=== PATIENT | male | born 1960 | race African-American/Black ===

== ENCOUNTER → 2017-12-02 | Outpatient (CLI) | payer OTHER, MEDICAID ==
[~2017-12-02] MED LIST: ALBUTEROL2.5 MG/31 INH; ASPIR 8181 MG PO; ASPIRIN325 PO; CARVEDILOL12.5 MG PO; CARVEDILOL6.25 MG PO; COREG3.125 MG PO; ENTRESTO 49 MG1 EACH PO; ENTRESTO 97 MG1 EACH PO; FOLTANX TABLET1 EACH PO; GABAPENTIN 100100 MG PO; HYDROCODONE-AP1 EAC6 PO; LEXAPRO20 MG PO; LIPITOR 20 MG T20 M1 PO; LISINOPRIL5 MG PO; METAMUCIL1 EAC1 PO; OMEPRAZOLE20 M2 PO; OXYCODONE HCL5 MG PO; PERCOCET PO; PLAVIX 75 MG TA75 M1 PO; PRINIVIL5 MG PO; PROAIR HFA8.5 GM INH; SINGULAIR 10 MG10 M1 PO; SPIRIVA; SYMBICORT160 MCG/4. INH; XANAX 0.25 MG0.25 MG PO
== END | disposition home or self-care (01) ==
LOC: M.RAD 11-28 15:19
DX: M25.512 Pain in left shoulder (principal); I10 Essential (primary) hypertension; E78.4 Other hyperlipidemia; Z86.73 Personal history of transient ischemic attack (TIA), and cerebral infarction without residual deficits; Z90.49 Acquired absence of other specified parts of digestive tract; Z79.82 Long term (current) use of aspirin; Z79.899 Other long term (current) drug therapy

== ENCOUNTER 2017-12-26 08:51 | Observation (INO) | payer OTHER, MEDICAID ==
[~2017-12-26] VITALS: Ht 190.5 cm; Wt 94.3 kg
[~2017-12-26 08:51] MED LIST changes: -ALBUTEROL2.5 MG/31 INH; -ENTRESTO 49 MG1 EACH PO; -HYDROCODONE-AP1 EAC6 PO; -METAMUCIL1 EAC1 PO; -OXYCODONE HCL5 MG PO
[2017-12-26] MEDS ORDERED: SYMBICORT160 MCG/4. INH (09:20)
[2017-12-26] MEDS ORDERED: ENTRESTO 49 MG1 EACH PO (09:21)
[2017-12-26] MEDS ORDERED: ALBUTEROL2.5 MG/31 INH (09:24)
[2017-12-26 09:55] LABS: HEMOGLOBIN 12.6 gm/dL (14.0-18.0); MCH 27.6 pg (26.0-34.0); MCHC 33.3 g/dL (28.0-37.0); MCV 83.1 fL (80.0-100.0); MPV 8.2 fl. (7.2-11.1); RBC 4.58 mil/uL (4.50-6.00); RDW-CV 15.2 % (10.5-14.5); WBC 4.9 thou/uL (4.0-11.0)
[2017-12-26 10:01] LABS: CALCIUM 8.8 mg/dL (8.5-10.1); CREATININE 1.1 mg/dL (0.6-1.3); POTASSIUM 3.7 mmol/L (3.5-5.1)
[2017-12-26 14:14] VITALS: BP 147/88
--- NOTE | 2017-12-26 20:01 | NUR ---
ALERT AND ORIENTED X4. PAIN BEING MANAGED WITH PO PAIN MEDICATION. IV IS PATENT AND SALINE LOCKED. PATIENT HAS BEEN VERY ANXIOUS WHEN AWAKE. PO ANXIETY MEDICATION GIVEN. SLING IN PLACE. DRESSING C/D/I. CONTINUOUS PULSE OX IN PLACE. VSS ON ROOM AIR. HOURLY ROUNDS HAVE BEEN MAINTAINED THROUGHOUT SHIFT. CALL LIGHT IS WITHIN REACH. NURSING WILL CONTINUE TO MONITOR.
[2017-12-26 20:30] VITALS: BP 154/103
[2017-12-26 22:00] VITALS: BP 140/80
[2017-12-26 23:46] VITALS: BP 129/84
[2017-12-27 03:30] VITALS: BP 144/78
--- NOTE | 2017-12-27 07:45 | NUR ---
Alert and oriented x4 but forgetful. L shoulder bulky dressing had to be reinforced because it was coming loose. He's up with stand by assist to the bathroom,he is voiding adequately. He denies nausea,bowel sounds x 4. He's on roomair and continuous pulse ox and it has not alarmed. He has had pain meds x 5. He has rated his shoulder pain from 10 to 3. He has slept intermittenly.
[2017-12-27 08:00] VITALS: BP 143/100
[2017-12-27] MEDS ORDERED: OXYCODONE HCL5 MG PO (10:40)
[2017-12-27] MEDS ORDERED: HYDROCODONE-AP1 EAC6 PO (10:42)
--- NOTE | 2017-12-27 11:30 | NUR ---
SPOKE WITH PT.AND . HE SAID HE IS READY TO GO HOME SOON DISCHARGES HIM. IS ON UNIT. HE SAID HE WILL GO HOME WITH . SHE CAN ASSIST HIM NEEDED WITH BATHEING/DRESSING. SHE NODDED HER HEAD YES. HE SAID HE DID NOT FEEL HE HAD ANY DISCHARGE NEEDS.
[2017-12-27 11:55] VITALS: BP 143/100
[2017-12-27] MEDS ORDERED: METAMUCIL1 EAC1 PO (12:02)
--- NOTE | 2018-01-23 11:54 | OP ---
[address] [address] OPERATIVE REPORT Name: ROSIO ANGELES Room: [address] Sarah#: [id number] Admission: 12/26/17 Attend Phys: Denise Jewell Discharge: 12/27/17 Date of : 60 Report #: [id number] THIS REPORT FOR: //name// CC: Mick Nazario DICTATED BY: Drew Soto DO DATE OF SERVICE: 12/26/2017 PREOPERATIVE DIAGNOSIS: Left shoulder rotator cuff tear. POSTOPERATIVE DIAGNOSES: 1. Left shoulder full-thickness rotator cuff tear, anterior margin of supraspinatus. 2. Biceps tendinosis. 3. Type 2 SLAP tear. 4. Subacromial bursitis. PROCEDURE PERFORMED: 1. Left shoulder arthroscopy with rotator cuff repair using Arthrex SpeedFix one anchor laterally. 2. Subacromial decompression. 3. Biceps tenotomy. PRIMARY SURGEON: Mick Patterson DO EP TECHNOLOGIST: Drew Soto DO ANESTHESIA: General LMA. ESTIMATED BLOOD LOSS: Minimal. COMPLICATIONS: None. SPECIMENS: None. CONDITION: Stable. DISPOSITION: PACU to floor 4 hours. INDICATIONS: The patient is a 57-year-old male that has been seen in our clinic multiple times regarding his shoulder pain. He did have a dislocation earlier last year and has continued to have shoulder pain after this. He has failed conservative treatments including injections and therapy and activity [facility] [address] [place] [address] OPERATIVE REPORT Name: BRIDGETTEROSIO Kingsley Room: [address] Sarah#: [id number] Admission: 12/26/17 Attend Phys: Denise Jewell Discharge: 12/27/17 Date of : 60 Report #: [id number] modification. He presents today for the above mentioned procedure. Risks, benefits, complications and alternatives of surgery were reviewed and discussed with him and he is wishing to proceed. DESCRIPTION OF PROCEDURE: The patient was taken to the OR suite, placed supine on the OR table. He was given the benefit of general anesthetic. He was then placed in the beach chair position. Head was secured in the anatomic alignment. The patient was prepped and draped in the usual sterile fashion. Prior to procedure, a time-out was taken confirming correct site, patient and procedure. The procedure began with a small incision to posterolateral viewing portal. Blunt trocar was used to access the shoulder joint. Camera was inserted and diagnostic arthroscopy was performed noting above mentioned findings. A spinal needle was then used to localize our anterolateral portal. This was just lateral to the coracoid process. Skin incision was made and blunt trocar was inserted. We then inserted the arthroscopic scissors and biceps tenotomy was performed. Next, spinal needle was inserted laterally through the cuff tear as visualized from the undersurface of the supraspinatus within the joint. A 2-0 Prolene was then placed to patria our tear. All fluid was removed within the joint space and we proceeded to subacromial space. Blunt trocar was used to gain access posterior from our posterolateral viewing portal. Camera was again inserted. A 18-gauge spinal needle was used to localize our lateral portal. Skin incision was made for a lateral portal and blunt trocar was inserted. Using arthroscopic shaver and radiofrequency ablator, a subacromial decompression was performed. A tear that was localized within the subacromial space with Prolene was identified. This was a full thickness tear at the anterior third of the supraspinatus tendon. The tendon edges were debrided back. The insertion footprint was debrided of all soft tissue debris down to get bleeding bone. Next, using a Scorpion suture passer, a horizontal mattress FiberTape was placed within the tendon tear at the anterior and posterior margins. We then placed a single anchor laterally to reduce the tendon back to its insertion and secured good bony purchase with a lateral row anchor. All instrumentation was then removed. Final images obtained. All excess fluid was removed from subacromial space. Wounds were closed with interrupted 4-0 nylon. Sterile dressing was applied. The patient was placed in a slingshot immobilizer. He tolerated the procedure well. He was transferred to the PACU in good and stable condition. All sponge and needle counts correct x 2. <ELECTRONICALLY SIGNED> By: Mick Patterson DO 01/23/18 1154 1218 [id number] Patterson DO /nt
== END 2017-12-27 13:00 | disposition home or self-care (01) ==
LOC: M.SUR 08:51 → M.TBA 12:10 → M.ORTHSURG 12:10
PROVIDERS: Anesthesiology; ADMIT Internal Medicine
DX: M75.122 Complete rotator cuff tear or rupture of left shoulder, not specified as traumatic (principal); M75.22 Bicipital tendinitis, left shoulder; S43.432A Superior glenoid labrum lesion of left shoulder, initial encounter; M75.52 Bursitis of left shoulder; J45.909 Unspecified asthma, uncomplicated; G62.9 Polyneuropathy, unspecified; M17.0 Bilateral primary osteoarthritis of knee; I10 Essential (primary) hypertension; M75.02 Adhesive capsulitis of left shoulder; Z87.891 Personal history of nicotine dependence; Z86.73 Personal history of transient ischemic attack (TIA), and cerebral infarction without residual deficits

== ENCOUNTER → 2018-09-09 | Outpatient (CLI) | payer OTHER, MEDICAID ==
[~2018-09-09] MED LIST changes: +ALBUTEROL2.5 MG/31 INH; +ENTRESTO 49 MG1 EACH PO; +HYDROCODONE-AP1 EAC6 PO; +METAMUCIL1 EAC1 PO; +OXYCODONE HCL5 MG PO
--- NOTE | 2018-09-09 13:40 | 2DMMODE ---
[place] [address] 2 D/M-MODE ECHOCARDIOGRAM Name: ROSIO ANGELES Room: [facility]#: [id number] Admission: 09/09/18 Attend Phys: Brenden Quiroz, Discharge: Date of : 60 Date of Service: 09/09/18 1339 Report #: [id number] THIS REPORT FOR: //name// APPROVED REPORT Study performed: 09/09/2018 09:47:50 EXAM: Comprehensive 2D, Doppler, and color-flow Echocardiogram Patient Location: Out-Patient Status: routine BSA: 2.21 HR: 64 bpm BP: 149/85 mmHg Other Information Study Quality: Good Indications Congestive Heart Failure 2D Dimensions IVSd: 15.70 (7-11mm) LVOT Diam: 21.90 (18-24mm) LVDd: 71.71 mm PWd: 12.37 (7-11mm) Ascending Ao: 38.38 (22-36mm) LVDs: 64.06 (25-40mm) Aortic Root: 33.90 mm Volumes Left Atrial Volume (Systole) LA ESV Index: 19.70 mL/m2 Aortic Valve AoV Peak Brennan.: 1.36 m/s AO Peak Gr.: 7.36 mmHg LVOT Max P.07 mmHg AO Mean Gr.: 4.69 mmHg LVOT Mean P.49 mmHg LVOT Max V: 0.52 m/s AO V2 VTI: 26.36 cm LVOT Mean V: 0.32 m/s IRENE (VTI): 1.49 cm2 LVOT V1 VTI: 10.41 cm Mitral Valve E/A Ratio: 0.72 MV Decel. Time: 227.91 ms MV E Max Brennan.: 0.54 m/s MV PHT: 66.09 [place] [address] 2 D/M-MODE ECHOCARDIOGRAM Name: ROSIO ANGELES Room: [facility]#: [id number] Admission: 09/09/18 Attend Phys: Brenden Quiroz, Discharge: Date of : 60 Date of Service: 09/09/18 1339 Report #: [id number] MVA (PHT): 3.33 cm2 TDI E/Lateral E': 10.80 E/Medial E': 7.71 Medial E' Brennan.: 0.07 m/s Lateral E' Brennan.: 0.05 m/s Pulmonary Valve PV Peak Brennan.: 0.93 m/s PV Peak Gr.: 3.48 mmHg Tricuspid Valve RAP Estimate: 5.00 mmHg TR Peak Gr.: 21.91 mmHg RVSP: 26.91 mmHg PA Pressure: 26.91 mmHg Left Ventricle Left ventricle is moderately dilated. There is global left ventricular hypokinesis with some dyssynergy noted. Mild concentric left ventricular hypertrophy. Left ventricular systolic function is moderate to severely decreased. LVEF is 30-35%. Grade I - abnormal relaxation pattern. Right Ventricle The right ventricle is normal size. The right ventricular systolic function is normal. Device lead is present in the right ventricle. Atria The left atrium size is normal. Pacemaker lead is present in the right atrium. Aortic Valve The aortic valve is normal in structure. Trace aortic regurgitation. There is no aortic valvular stenosis. Mitral Valve The mitral valve is normal in structure. Mild mitral regurgitation. No evidence of mitral valve stenosis. Tricuspid Valve The tricuspid valve is normal in structure. Trace tricuspid regurgitation. Pulmonic Valve The pulmonary valve is normal in structure. There is no pulmonic [place] [address] 2 D/M-MODE ECHOCARDIOGRAM Name: ROSIO ANGELES Room: [facility]#: [id number] Admission: 09/09/18 Attend Phys: Brenden Quiroz, Discharge: Date of : 60 Date of Service: 09/09/18 1339 Report #: [id number] Great Vessels The aortic root is normal in size. The ascending aorta is mildly dilated. IVC is dilated and collapses >50% with inspiration. Pericardium There is no pericardial effusion. <Conclusion> Left ventricle is moderately dilated. Mild concentric left ventricular hypertrophy. Left ventricular systolic function is moderate to severely decreased. LVEF is 30-35%. Grade I - abnormal relaxation pattern. Device lead is present in the right ventricle. Trace aortic regurgitation. Mild mitral regurgitation. IVC is dilated and collapses >50% with inspiration. The ascending aorta is mildly dilated. <ELECTRONICALLY SIGNED> By: Brenden Quiroz MD, FACC 09/09/18 1339 133 Brenden Quiroz MD, FACC /INF
== END ==
LOC: M.CRD 09:18
DX: I34.0 Nonrheumatic mitral (valve) insufficiency (principal); I51.7 Cardiomegaly; I50.22 Chronic systolic (congestive) heart failure; I42.8 Other cardiomyopathies

== ENCOUNTER → 2018-12-23 | Day surgery (SDC) | payer OTHER ==
--- NOTE | ~2018-12-23 | PROC ---
[address] [address] PROCEDURE REPORT Name: ROSIO ANGELES Room: [facility]..#: [id number] Admission: 12/23/18 Attend Phys: Mayelin Ayers MD Discharge: Date of : 60 Report #: [id number] THIS REPORT FOR: //name// For GI report, please see the Provation report in Perceptive 7 content. By: [id number] Records Staff [facility] /LUPE
[2018-12-23 06:59] LABS: HEMATOCRIT 42.8 % (42.0-52.0); HEMOGLOBIN 14.2 gm/dL (14.0-18.0); MCH 27.7 pg (26.0-34.0); MCHC 33.3 g/dL (28.0-37.0); MCV 83.2 fL (80.0-100.0); RBC 5.15 mil/uL (4.50-6.00); RDW-CV 15.2 % (10.5-14.5); WBC 5.2 thou/uL (4.0-11.0)
[2018-12-23 07:00] LABS: MPV 7.7 fl. (7.2-11.1)
[2018-12-23 07:07] LABS: CALCIUM 8.9 mg/dL (8.5-10.1); POTASSIUM 3.8 mmol/L (3.5-5.1)
--- NOTE | 2018-12-23 17:10 | EKG ---
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: : 1960 Requested By: Mayelin Ayers Order Number: [id number] Michelle MD: Brenden Quiroz Measurements Intervals [place] Rate: 54 P: 0 ND: 171 QRS: -3 QRSD: 112 T: 4 QT: 453 QTc: 430 Interpretive Statements Sinus rhythm Probable left ventricular hypertrophy Borderline T abnormalities, inferior leads Compared to ECG 07/07/2017 12:10:04 T-wave abnormality now present Electronically Signed On 12-23-2018 17:10:14 CDT by Brenden Quiroz [email or web address] <ELECTRONICALLY SIGNED> By: Brenden Quiroz MD, [facility] 12/23/181709 0755 [id number] Brenden Quiroz MD, FACC /EPI
--- NOTE | 2018-12-24 15:06 | PATH ---
[facility] [address] [place] [address] PATHOLOGY RPT PROCEDURE Name: BRIDGETTEYASHBIJU XIONG [id number] Admission: 12/23/18 Date of : 60 Discharge: Report #: [id number] Path Case #: [id number] [facility] Accession Number: [id number] . 01 Material submitted: . PART A: GASTRIC BIOPSY R/O GASTRITIS PART B: TRANSVERSE COLON POLYPS PART C: ASCENDING COLON POLYP . 01 Clinical history: . History of colon polyps, GERD, long-term use of anti-platelets . 02 Diagnosis: A. Gastric biopsy: - Mild nonspecific chronic gastritis with suggestion of fundic gland polyp(s), negative for Helicobacter pylori organisms and dysplasia. . B. Transverse colon polyps: - Multiple tubular adenomas, negative for high-grade dysplasia. . C. Ascending colon polyp: - Tubular adenoma, negative for high-grade dysplasia. . (WILLIAM:dexter; 12/24/2018) MBR/12/24/2018 . 02 Comment: Special stain on A: H. pylori immuno. (WILLIAM:dexter; 12/24/2018) . 02 Electronically signed: . Petr Hussein MD, Pathologist NPI- [id number] . 01 Gross description: . A. The specimen is received in formalin, labeled "Yash Angeles, gastric biopsy rule out gastritis", are four dwyer, mucosal fragments ranging from 0.1 cm up to 0.5 cm in greatest dimension and measuring 0.5 x 0.5 x 0.2 cm in aggregate. The specimen is entirely submitted in A1. . B. The specimen is received in formalin, labeled "Yash Angeles, transverse colon polyps", is a dwyer, rubbery sessile polyp measuring 0.6 x 0.4 x 0.3 cm, inked black, bisected and entirely submitted in B1. Also received are several dwyer soft tissue fragments admixed with yellow mucoid material measuring 0.7 x 0.5 x 0.2 cm in aggregate, this is entirely submitted in B2. . C. The specimen is received in formalin, labeled "Yash Angeles, [place] [address] PATHOLOGY RPT PROCEDURE Name: YASH ANGELES Room: [facility]#: [id number] Admission: 12/23/18 Date of : 60 Discharge: Report #: [id number] Path Case #: [id number] ascending colon polyp", are few fragments of dwyer, mucosal tissue admixed with plant material and mucus measuring 1.0 x 0.7 x 0.2 cm in aggregate. The specimen is entirely submitted in C1. ([facility]; 12/23/2018) SHS/SHS . 02 Pathologist provided ICD-10: K29.50, K31.7, D12.3, D12.2 . 02 CPT . 293784, 029262, 747671 Specimen Comment: A courtesy copy of this report has been sent to Specimen Comment: [phone], . Specimen Comment: Report sent to / DR LOREDO Performed at: [facility] [address], [place] [id number] MD Toribio Newman MD Phone: [phone] Performed at: [address] [address] Jan[place], [place] [id number] MD Petr Hussein MD Phone: [phone]
== END | disposition home or self-care (01) ==
LOC: M.SUR 06:21
PROVIDERS: Internal Medicine Gastroenterology
DX: Z12.11 Encounter for screening for malignant neoplasm of colon (principal); Z86.010 Personal history of colon polyps; K57.30 Diverticulosis of large intestine without perforation or abscess without bleeding; K64.8 Other hemorrhoids; D12.3 Benign neoplasm of transverse colon; D12.2 Benign neoplasm of ascending colon; K29.50 Unspecified chronic gastritis without bleeding; K44.9 Diaphragmatic hernia without obstruction or gangrene; I25.10 Atherosclerotic heart disease of native coronary artery without angina pectoris; I25.2 Old myocardial infarction; I50.9 Heart failure, unspecified; I73.9 Peripheral vascular disease, unspecified; J44.9 Chronic obstructive pulmonary disease, unspecified; K21.9 Gastro-esophageal reflux disease without esophagitis; Z98.890 Other specified postprocedural states; Z87.891 Personal history of nicotine dependence; Z79.899 Other long term (current) drug therapy; Z79.02 Long term (current) use of antithrombotics/antiplatelets

== ENCOUNTER → 2019-02-10 | Outpatient (CLI) | payer OTHER | LOC: M.NUC 06:25 | DX: R68.81 Early satiety (principal); R63.4 Abnormal weight loss; R63.0 Anorexia ==

== ENCOUNTER 2019-08-26 22:27 | Observation (INO) | payer OTHER ==
[~2019-08-26] VITALS: Ht 190.5 cm; Wt 84.4 kg
[2019-08-26 22:34] VITALS: BP 159/100
[2019-08-26 23:13] LABS: ABSOLUTE LYMPHOCYTES 1.3 thou/uL (0.8-5.3); ABSOLUTE MONOCYTES 1.5 thou/uL (0.0-1.2); ABSOLUTE NEUTROPHILS 6.8 thou/uL (1.6-8.1); BASOPHILS 0.5 %; EOSINOPHILS 0.4 %; HEMATOCRIT 42.1 % (42.0-52.0); HEMOGLOBIN 14.3 gm/dL (14.0-18.0); LYMPHOCYTES 13.7 %; MCH 28.2 pg (26.0-34.0); MCHC 33.9 g/dL (28.0-37.0); MCV 83.3 fL (80.0-100.0); MONOCYTES 15.8 %; MPV 7.9 fl. (7.2-11.1); NUCLEATED RBCS 0 /100WBC; PLATELET COUNT* 209 thou/uL (150-400); POLYS 69.6 %; RBC 5.05 mil/uL (4.50-6.00); RDW-CV 15.2 % (10.5-14.5); WBC 9.8 thou/uL (4.0-11.0)
[2019-08-26 23:14] LABS: CALCIUM 9.1 mg/dL (8.5-10.1); CREATININE 1.1 mg/dL (0.6-1.3); POTASSIUM 3.3 mmol/L (3.5-5.1)
[2019-08-26 23:18] LABS: ALBUMIN 3.7 g/dL (3.4-5.0); MAGNESIUM 1.6 mg/dL (1.8-2.4); TOTAL BILIRUBIN 0.3 mg/dL (<0.1-1.0); TOTAL PROTEIN 7.4 g/dL (6.4-8.2)
[2019-08-26 23:25] LABS: URINE BILIRUBIN NEGATIVE (Negative); URINE BLOOD NEGATIVE (Negative); URINE CLARITY CLEAR; URINE COLOR YELLOW; URINE GLUCOSE-RANDOM NEGATIVE (Negative); URINE KETONES NEGATIVE (Negative); URINE LEUKOCYTES-REFLEX NEGATIVE (Negative); URINE NITRITE-REFLEX NEGATIVE (Negative); URINE PROTEIN NEGATIVE (Negative); URINE SPECIFIC GRAVITY <= 1.005 (1.005-1.030); URINE UROBILINOGEN 0.2 E.U./dl (0.2-1.0)
[2019-08-26 23:29] LABS: BE 2.3 mmol/L (-2 to +3); PCO2 39.8 mmHg (35.0-45.0); PO2 84.4 mmHg (75.0-100.0); pH 7.441 (7.340-7.450)
[2019-08-26 23:36] LABS: INFLUENZA A ANTIGEN Negative (Negative)
[2019-08-27 01:40] VITALS: BP 135/85
[2019-08-27 01:45] VITALS: BP 154/84
--- NOTE | 2019-08-27 02:00 | NUR ---
PT ADMITTED TO ROOM 209 VIA CART FROM ED WITH INFLUENZA B, HTN URGENCY,HEADACHE AND BRIGHT RED BLOOD PER RECTUM. PT REPORTS HX OF INTESTINAL CONSTRICTION THAT REQUIRED IMMEDIATE SURGICAL INTERVENTION AT . PT IS ALERT AND ANSWERS QUESTIONS APPROPRIATELY. UP AD MOE WITHOUT ASSISTIVE DEVICES. TELE SHOWS SR. PT DOES HAVE A PACEMAKER TO L SC.MEDICATIONS RECONCILED AND GIVEN PER EMAR. PT EDUCATED TO TREATMENTS,PLAN OF CARE AND ORIENTED TO ROOM.
--- NOTE | 2019-08-27 05:25 | NUR ---
PT IS RESTING COMFORTABLY AT THIS TIME WITH AT BEDSIDE. PT HAD HEADACHE AT ADMISSION AND GIVEN ONE TIME DOSE OF IBUPROFEN. PT PROGRESSING TOWARDS GOALS.
[2019-08-27 08:00] VITALS: BP 146/94
--- NOTE | 2019-08-27 10:32 | EKG ---
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: [facility] : 1960 Requested By: Latricia Arias Order Number: [id number] MD: Cooper Francis Measurements Intervals [place] Rate: 76 P: 34 [place]: 174 QRS: -9 QRSD: 114 T: 12 QT: 419 QTc: 472 Interpretive Statements Sinus rhythm Probable left atrial enlargement Left ventricular hypertrophy Baseline wander in lead(s) V1 Compared to ECG 12/23/2018 07:55:41 T-wave abnormality persists Electronically Signed On 08-27-2019 10:32:06 GRILL PREP COOK by Cooper Francis [email or web address] <ELECTRONICALLY SIGNED> By: Cooper Francis MD, FACC 08/27/19 1032 2241 [id number] Cooper Francis MD, [facility] /EPI
[2019-08-27] MEDS ORDERED: TAMIFLU75 MG PO (10:56)
[2019-08-27 11:27] VITALS: BP 150/106
[2019-08-27 11:52] VITALS: BP 150/106
--- NOTE | 2019-08-27 13:19 | NUR ---
PT VSS, IN ISOLATION FOR INFLUENZA B, UAL, NSR ON TELE, A&OX4 REC DISCHARGE ORDERS FOR PATIENT, REVIEW DC ORDERS WITH PATIENT, REMOVED TELE MONITOR AND IV WITHOUT COMPLICATION. SCRIPT SENT ELECTRONICALLY TO PHARMACY, CARE NOTE GIVEN TO PATIENT. PATIENT WALKED TO FRONT DOOR WITH NURSING STAFF AND PICKED UP BY SPOUSE.
== END 2019-08-27 13:00 | disposition home or self-care (01) ==
LOC: M.ERS 22:27 → M.2W 08-27 00:19 → M.TBA-ER 08-27 00:19 → M.2W 08-27 01:30
PROVIDERS: Personal Emergency Response Attendant; ADMIT Internal Medicine
DX: J11.1 Influenza due to unidentified influenza virus with other respiratory manifestations (principal); I16.0 Hypertensive urgency; K92.1 Melena; R51 Headache; G62.9 Polyneuropathy, unspecified; I11.0 Hypertensive heart disease with heart failure; I50.22 Chronic systolic (congestive) heart failure; Z86.73 Personal history of transient ischemic attack (TIA), and cerebral infarction without residual deficits; Z79.82 Long term (current) use of aspirin; Z87.891 Personal history of nicotine dependence; Z79.899 Other long term (current) drug therapy

== ENCOUNTER → 2020-09-15 | Outpatient (CLI) | payer OTHER ==
[~2020-09-15] VITALS: Ht 188 cm; Wt 93.0 kg
[~2020-09-15] MED LIST changes: +PAXIL20 MG PO; +POTASSIUM20 PO; +PROAIR HFA8.5 GM PO; +PROTONIX 20 MG20 M1 PO; +TAMIFLU75 MG PO; +VIAGRA100 MG PO
[2020-09-15 10:32] VITALS: BP 144/96
[2020-09-15 10:38] LABS: HEMATOCRIT 40.3 % (42.0-52.0); HEMOGLOBIN 13.3 gm/dL (14.0-18.0); MCH 27.4 pg (26.0-34.0); MPV 7.6 fl. (7.2-11.1); RBC 4.86 mil/uL (4.50-6.00); RDW-CV 15.4 % (10.5-14.5); WBC 6.2 thou/uL (4.0-11.0)
[2020-09-15 10:50] LABS: APTT 24.1 Seconds (25.0-31.3); PROTIME 10.5 Seconds (9.20-11.50)
[2020-09-15 10:51] LABS: ALBUMIN 3.8 g/dL (3.4-5.0); CALCIUM 8.7 mg/dL (8.5-10.1); CREATININE 0.9 mg/dL (0.6-1.3); POTASSIUM 4.4 mmol/L (3.5-5.1); TOTAL BILIRUBIN 0.3 mg/dL (<0.1-1.0); TOTAL PROTEIN 7.3 g/dL (6.4-8.2)
[2020-09-15 13:18] VITALS: BP 155/97
[2020-09-15 13:35] VITALS: BP 147/90
[2020-09-15 13:49] VITALS: BP 138/88
[2020-09-15 14:05] VITALS: BP 137/94
[2020-09-15 14:22] VITALS: BP 149/96
--- NOTE | 2020-09-15 15:24 | CARD ---
[address] [address] CARDIAC CATH REPORT Name: ROSIO ANGELES Kingsley Room: [facility]#: [id number] Admission: 09/15/20 Attend Phys: Brenden Quiroz MD Discharge: Date of : 60 Report #: [id number] THIS REPORT FOR: cc: Janell Alvarado MD, Kandice L. MD ~ Brenden Quiroz MD [facility] APPROVED REPORT Study performed: 09/15/2020 11:27:38 Patient Status: Out-Patient Room #: Event Personnel: Brenden Quiroz Rubber Goods Finisher, Sravan ReidIS Scrub, Josefa Min RTR Monitor, Daly Card RN RN Exam: ICD Pocket Revision Indications: Moderate discomfort at the site of ICD generator. The patient is a 60 year-old male with a history of Nonischemic cardiomyopathy status post ICD placement. Conscious Sedation Start time: 11:52 End Time: 12:55 Fentanyl 250 mcg Versed 6 mg Procedure The patient underwent informed consent. We discussed the details of the procedure including the risks, which include, but not limited to bleeding, infection, vascular damage, cardiac perforation, and pneumothorax. He understood these risks and was willing to proceed. As such, he was brought to the EP/Cardiac Catheterization laboratory in a fasting and sedated state and prepped and draped in a sterile fashion, received IV antibiotics prior to initiation of the procedure and a venogram was performed showing patency of the left axillary vein. The patient underwent conscious sedation, with no related complications. The patient was brought to the EP/Cardiac Catheterization laboratory and the left chest and shoulder were prepped and draped in a sterile manner. During this case, Fluoroscopy and no contrast were used for imaging. The left subclavian region was infiltrated with 2% Lidocaine with Epinephrine subcutaneous anesthesia. A transverse incision was made in the left upper chest cavity. Capturing and sensing thresholds were verified. Original pocket was reshaped and the ICD [place] [address] CARDIAC CATH REPORT Name: ROSIO ANGELES Room: [facility]#: [id number] Admission: 09/15/20 Attend Phys: Brenden Quiroz MD Discharge: Date of : 60 Report #: [id number] pocket. The pocket was irrigated with ancef antibiotic solution. Electrode Parameters Pacing defibrillator parameters unchanged pre and post pocket revision procedure. The lead and pulse generator were placed into the subcutaneous pocket. Sharp and sponge counts were confirmed to be correct. At this time the pocket was closed subcutaneously with a 2.0 Vicryl and the skin was closed with a 4.0 Vicryl. The operative site was dressed in sterile fashion with Benzoin spray, steri strips, telfa, and tegaderm and the patient was transferred to the floor in stable condition. Complications The patient tolerated the procedure well and there were no complications associated with the procedure. Findings Specimens Removed: No Estimated Blood Loss: 5 ml Conclusion 1. Status post ICD pocket revision. Recommendations 1. Follow-up site check in 1 week in the office. <ELECTRONICALLY SIGNED> By: Brenden Quiroz MD, FACC 09/15/20 1524 1524 1524Michaejulian Quiroz MD, FACC /INF
== END | disposition home or self-care (01) ==
LOC: M.CL 09:40
PROVIDERS: ATTEND Internal Medicine Cardiovascular Disease
DX: T82.847A Pain due to cardiac prosthetic devices, implants and grafts, initial encounter (principal); I42.8 Other cardiomyopathies; Z95.810 Presence of automatic (implantable) cardiac defibrillator; I11.0 Hypertensive heart disease with heart failure; I50.22 Chronic systolic (congestive) heart failure; E78.2 Mixed hyperlipidemia; J45.909 Unspecified asthma, uncomplicated; E78.00 Pure hypercholesterolemia, unspecified; I63.9 Cerebral infarction, unspecified; F41.9 Anxiety disorder, unspecified; Z98.890 Other specified postprocedural states; Z79.899 Other long term (current) drug therapy; Z90.49 Acquired absence of other specified parts of digestive tract; Z87.891 Personal history of nicotine dependence; Y83.8 Other surgical procedures as the cause of abnormal reaction of the patient, or of later complication, without mention of misadventure at the time of the procedure